=== PATIENT | female | born 1985 | race Caucasian/White ===

== ENCOUNTER → 2017-12-24 | Emergency (ER) | payer OTHER ==
[~2017-12-24] VITALS: Ht 165.1 cm; Wt 56.7 kg
[~2017-12-24] MED LIST: CIPROFLOXACIN500 M3; FLOMAX0.4 MG PO; HYDROCODONE-AP1 EAC6 PO; IBUPROFEN 800800 M1 PO; PHENERGAN 25 MG25 M1; VISTARIL 25 MG25 M1 PO; ZOFRAN ODT4 MG DISSOLVE
[2017-12-24 07:30] LABS: URINE BILIRUBIN NEGATIVE (Negative); URINE BLOOD 3+ (Negative); URINE CLARITY CLEAR; URINE COLOR YELLOW; URINE GLUCOSE-RANDOM NEGATIVE (Negative); URINE KETONES NEGATIVE (Negative); URINE LEUKOCYTES-REFLEX NEGATIVE (Negative); URINE NITRITE-REFLEX NEGATIVE (Negative); URINE PROTEIN TRACE (Negative); URINE SPECIFIC GRAVITY >= 1.030 (1.005-1.030); URINE UROBILINOGEN 0.2 E.U./dl (0.2-1.0)
[2017-12-24 07:38] LABS: ABSOLUTE BASOPHILS 0.1 thou/uL (0.0-0.2); ABSOLUTE EOSINOPHILS 0.1 thou/uL (0.0-0.7); ABSOLUTE LYMPHOCYTES 1.8 thou/uL (0.8-5.3); ABSOLUTE MONOCYTES 0.6 thou/uL (0.0-1.2); ABSOLUTE NEUTROPHILS 5.5 thou/uL (1.6-8.1); BASOPHILS 0.6 %; EOSINOPHILS 1.2 %; HEMATOCRIT 41.3 % (37.0-47.0); MCH 31.1 pg (26.0-34.0); MCHC 33.8 g/dL (28.0-37.0); MCV 91.9 fL (80.0-100.0); MONOCYTES 6.9 %; MPV 8.7 fl. (7.2-11.1); NUCLEATED RBCS 0 /100WBC; PLATELET COUNT* 259 thou/uL (150-400); POLYS 69.3 %; RBC 4.49 mil/uL (4.20-5.00); RDW-CV 12.7 % (10.5-14.5)
[2017-12-24 07:44] LABS: SQUAMOUS >10 Many /LPF (0-3); URINE WBC-REFLEX 0-5 Rare /HPF (0-5)
[2017-12-24 07:45] LABS: BACTERIA-REFLEX 1-9 Few /HPF (None Seen); CASTS None Seen /LPF (None Seen); CRYSTALS None Seen /LPF (None Seen); MUCUS None Seen strn/LPF (None Seen)
[2017-12-24 07:49] LABS: CALCIUM 8.9 mg/dL (8.5-10.1); CREATININE 0.9 mg/dL (0.6-1.3); POTASSIUM 3.4 mmol/L (3.5-5.1); TOTAL BILIRUBIN 0.5 mg/dL (<0.1-1.0); TOTAL PROTEIN 7.5 g/dL (6.4-8.2)
[2017-12-24 09:19] VITALS: BP 120/67
== END ==
LOC: M.ERS 06:52
PROVIDERS: Emergency Medicine Emergency Medical Services
DX: N20.0 Calculus of kidney (principal); Z88.0 Allergy status to penicillin

== ENCOUNTER 2021-04-02 23:20 | Emergency (ER) | payer OTHER ==
[~2021-04-02] VITALS: Ht 165.1 cm; Wt 68.0 kg
[2021-04-02 23:26] VITALS: BP 154/106
[2021-04-02] MEDS ORDERED: MYDAYIS ER 50 M50 MG PO (23:28)
== END 2021-04-02 23:54 | disposition left against medical advice (07) ==
LOC: M.ERS 23:20
DX: R10.32 Left lower quadrant pain (principal); R11.0 Nausea; Z88.0 Allergy status to penicillin; Z53.21 Procedure and treatment not carried out due to patient leaving prior to being seen by health care provider